=== PATIENT | male | born 1950 | race Caucasian/White ===

== ENCOUNTER 2017-10-04 11:49 | Inpatient (IN) | payer OTHER ==
[~2017-10-04] VITALS: Ht 180.3 cm; Wt 88.0 kg
[2017-10-04 16:28] LABS: BASOPHIL % 0.4 % (0-2); PLATELET COUNT 192 x10^3mcL (130-400); RED CELL DISTRIBUTION WIDTH 12.9 % (11.5-14.5)
[2017-10-04 16:31] LABS: CALCIUM 8.6 mg/dL (8.5-10.1); CHLORIDE SERUM 103 mmol/L (98-107); GFR1 > 60 mL/min; GLUCOSE SERUM 175 mg/dL (74-106); POTASSIUM SERUM 4.3 mmol/L (3.5-5.1); SODIUM SERUM 137 mmol/L (136-145)
[2017-10-04 16:35] LABS: ALBUMIN 3.6 g/dL (3.4-5.0); ALKALINE PHOSPHATASE 84 U/L (46-116); ALT/SGPT 18 U/L (16-63); AST/SGOT 12 U/L (15-37); BILIRUBIN TOTAL 0.3 mg/dL (0.20-1.00); C REACTIVE PROTEIN 2.7 mg/dL (<=0.9); TOTAL PROTEIN, SERUM 7.5 g/dL (6.4-8.2)
[2017-10-04 17:30] LABS: ERYTHROCYTE SED RATE 41 mm/hr (0-20)
[2017-10-04 19:54] VITALS: BP 147/72
[2017-10-04 20:30] VITALS: BP 141/71
[2017-10-05] MEDS ORDERED: METOPROLOL TART50 MG PO (00:05)
[2017-10-05] MEDS ORDERED: SIMVASTATIN80 M1 PO (00:06)
[2017-10-05] MEDS ORDERED: EPZICOM1 TAB (00:07)
[2017-10-05] MEDS ORDERED: METFORMIN HYD1000 M2 PO (00:07)
[2017-10-05 05:29] VITALS: BP 135/75
[2017-10-05 06:43] LABS: BASOPHIL % 0.3 % (0-2); PLATELET COUNT 160 x10^3mcL (130-400); RED CELL DISTRIBUTION WIDTH 12.9 % (11.5-14.5)
[2017-10-05 06:56] LABS: CALCIUM 8.6 mg/dL (8.5-10.1); CARBON DIOXIDE 24.4 mmol/L (21-32); CHLORIDE SERUM 104 mmol/L (98-107); GFR1 > 60 mL/min; GLUCOSE SERUM 144 mg/dL (74-106); POTASSIUM SERUM 3.8 mmol/L (3.5-5.1); SODIUM SERUM 139 mmol/L (136-145)
[2017-10-05 09:54] VITALS: BP 122/76
[2017-10-05 14:04] VITALS: BP 136/68
[2017-10-05 17:37] VITALS: BP 122/69
[2017-10-06 05:55] VITALS: BP 111/73
[2017-10-06 08:48] VITALS: BP 109/76
[2017-10-06 08:51] LABS: ALBUMIN 3.1 g/dL (3.4-5.0); ALKALINE PHOSPHATASE 73 U/L (46-116); ALT/SGPT 16 U/L (16-63); AST/SGOT 11 U/L (15-37); BILIRUBIN TOTAL 0.5 mg/dL (0.20-1.00); CALCIUM 8.1 mg/dL (8.5-10.1); CARBON DIOXIDE 26.1 mmol/L (21-32); CREATININE SERUM 1.2 mg/dL (0.7-1.3); GFR1 > 60 mL/min; GLUCOSE SERUM 209 mg/dL (74-106)
[2017-10-06 08:57] LABS: CHLORIDE SERUM 100 mmol/L (98-107); POTASSIUM SERUM 4.1 mmol/L (3.5-5.1); SODIUM SERUM 137 mmol/L (136-145)
[2017-10-06 12:41] VITALS: BP 116/69
[2017-10-06 16:53] VITALS: BP 140/74
[2017-10-06 20:14] VITALS: BP 144/85
[2017-10-06 20:50] VITALS: BP 147/73
[2017-10-07] VITALS (7 sets, daily range): BP systolic 105–159; BP diastolic 66–81; Ht 180.3 cm; Wt 88.0 kg
[2017-10-08 05:50] VITALS: BP 132/67
[2017-10-08 09:57] VITALS: BP 113/63
[2017-10-08 13:17] VITALS: BP 139/72
[2017-10-08 17:46] VITALS: BP 156/83
[2017-10-08 21:14] VITALS: BP 145/69
[2017-10-09 06:08] VITALS: BP 137/78
[2017-10-09 06:33] LABS: BASOPHIL % 0.6 % (0-2); PLATELET COUNT 225 x10^3mcL (130-400); RED CELL DISTRIBUTION WIDTH 12.5 % (11.5-14.5)
[2017-10-09 06:52] LABS: CALCIUM 9.3 mg/dL (8.5-10.1); CARBON DIOXIDE 25.8 mmol/L (21-32); CHLORIDE SERUM 102 mmol/L (98-107); CREATININE SERUM 1.1 mg/dL (0.7-1.3); GFR1 > 60 mL/min; GLUCOSE SERUM 152 mg/dL (74-106); POTASSIUM SERUM 3.9 mmol/L (3.5-5.1); SODIUM SERUM 137 mmol/L (136-145)
[2017-10-09 09:05] VITALS: BP 130/69
[2017-10-09 10:18] VITALS: BP 130/69
[2017-10-09 15:04] VITALS: BP 133/70
== END 2017-10-09 16:00 | disposition home or self-care (01) | DRG 549 ==
LOC: ED 11:49 → DU 17:54 → MU 10-09 14:48 → DU 10-09 14:50
PROVIDERS: Emergency Medicine; Internal Medicine
DX: M00.9 Pyogenic arthritis, unspecified (principal); L03.113 Cellulitis of right upper limb; E11.65 Type 2 diabetes mellitus with hyperglycemia; I25.10 Atherosclerotic heart disease of native coronary artery without angina pectoris; I10 Essential (primary) hypertension; Z68.29 Body mass index [BMI] 29.0-29.9, adult; Z86.73 Personal history of transient ischemic attack (TIA), and cerebral infarction without residual deficits; Z79.4 Long term (current) use of insulin
CPT/HCPCS: 82962; J1815; J2001; J2270; J3370; J3490; J7030; J7040; J7050; Q0163